=== PATIENT | female | born 1990 | race Caucasian/White ===

== ENCOUNTER 2021-05-11 14:48 | Emergency (ER) | payer OTHER ==
[~2021-05-11] VITALS: Ht 167.6 cm; Wt 72.6 kg
[2021-05-11 15:41] LABS: INFLUENZA A ANTIGEN Negative (Negative); INFLUENZA B ANTIGEN Negative (Negative)
[2021-05-11] MEDS ORDERED: APAP W/CODEINE1 TA2 PO (15:52)
[2021-05-11 16:10] VITALS: BP 141/70
== END 2021-05-11 16:10 | disposition home or self-care (01) ==
LOC: M.ERS 14:48
PROVIDERS: Physician Assistant
DX: U07.1 COVID-19 (principal)